=== PATIENT | male | born 1960 | race Caucasian/White ===

== ENCOUNTER → 2017-05-20 | Outpatient (CLI) | payer OTHER ==
--- NOTE | 2017-05-21 15:39 | CT ---
EXAM DESCRIPTION: Soft Tissue Neck w/Contrast: Computed Tomography. 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 TECHNIQUE: Spiral, axial 2.5 mm scans through the neck soft tissues after infusion of IV contrast. Sagittal and coronal 2.0 reconstructions. No adverse reactions. Total Exam DLP: 343.61 mGy-cm. This exam was performed according to our departmental CT dose-optimization program which includes automated exposure control, adjustment of the mA and/or kV according to patient size and/or use of iterative reconstruction technique; to reduce radiation dose to as low as reasonably achievable (ALARA). FINDINGS: Mass with inhomogeneous enhancement in the left sublingual region abutting the anterior cortex of the anterior left mandibular body with mass effect on the abutting soft tissues and tongue. Dimensions are 2.2 cm AP, 1.1 cm transverse, and 2.0 cm craniocaudal. Also mass effect on the left lateral genioglossus/geniohyoid muscle complex, and the superior left anterior digastric muscle. Question involvement of superior aspect of anterior left mylohyoid muscle. No cortical thinning or erosion of the mandible. Normal size density and enhancement of the bilateral parotid glands. Normal size density and enhancement of the bilateral submandibular glands. Uniform enhancement of the thyroid gland. No juxta-thyroid masses. No enlarged lymph nodes in the carotid spaces or paracervical spaces. No enlarged lymph nodes in the parapharyngeal spaces. No abnormal density or enhancement in the included subcutaneous adipose tissue. The included paranasal sinuses show no significant masses or air-fluid levels. Mastoid sinuses bilaterally are well aerated. Normal enhancement in the included cerebellum and brainstem. No mass effect or effacement of the nasopharynx. Posterior septum deviated to the left with septal spur. Included upper lungs show minimal pleural thickening but no infiltrate or mass. Minimal arthrosis atlantoaxial joint, also minimal spondylosis C3-4 and C4-5. Moderate spondylosis C5-6 and C6-7. Bilateral spurs causing neuroforaminal stenosis at C5-6. IMPRESSION: 1. 2.2 cm inhomogeneously enhancing mass in the left sublingual space abutting the anterior left mandibular body with mass effect on the left genioglossus/geniohyoid muscle complex, left anterior digastric muscle, and the anterior left mylohyoid muscle. Questionable involvement of the mylohyoid muscle. No cortical erosion/destruction of the medial mandible. 2. No adenopathy or evidence of continuous spread or mass. 3. Spondylosis at multiple levels of the cervical spine. Electronically signed by: Kishor Gilman MD 05/21/2017 3:39 PM [employer]
== END ==
LOC: CT 08:55
PROVIDERS: ATTEND Otolaryngology
DX: C00-D49 Neoplasms (principal)

== ENCOUNTER → 2017-06-29 | Outpatient (CLI) | payer OTHER ==
--- NOTE | 2017-06-30 08:19 | CT ---
EXAM DESCRIPTION: Chest w/Contrast : Computed Tomography. CLINICAL HISTORY: MALIGNANT NEOPLASM OF SUBLINGUAL GLAND COMPARISON: CT scan of the neck with IV contrast 05/20/2017. TECHNIQUE: Spiral-axial scans at 5.0 mm intervals through the lungs and thorax without IV contrast. 2.5 mm lung algorithm axial reconstructions. Coronal and sagittal 2.0 Mm reconstructions. No adverse reactions. Total Exam DLP: 514.69 mGy-cm. This exam was performed according to our departmental dose-optimization program which includes automated exposure control, adjustment of the mA and/or kV according to patient size and/or use of iterative reconstruction technique; to reduce radiation dose to as low as reasonably achievable (ALARA). FINDINGS: Subpleural flat soft tissue density superior segment left lower lobe (series 4, image 61). Bilateral apical pleural thickening. Scarring medial right lower lobe posterior to the hilum. No abnormal nodules bilaterally and no infiltrates. No pleural effusion or pneumothorax. Small lymph nodes in the mediastinum and hilum but no adenopathy. Also small lymph nodes in the axillary regions. Inhomogeneous enhancement of the thyroid gland. Some diaphragmatic peritoneal space with no free fluid. Less than 1 cm radiodense gallstone. Normal size and enhancement of the adrenal glands and spleen. Fatty infiltration of the pancreas. Spondylosis at some levels of the thoracic spine no bone destruction. IMPRESSION: Scattered parenchymal densities in the lungs but no masses or nodules. No adenopathy in the mediastinum hilum or other included lymph node spaces. Electronically signed by: Kishor Gilman MD 06/30/2017 8:16 AM CDT
== END ==
LOC: CT 08:35
PROVIDERS: ATTEND Otolaryngology
DX: C08.1 Malignant neoplasm of sublingual gland (principal)

== ENCOUNTER → 2019-01-30 | Outpatient (CLI) | payer BC ==
--- NOTE | 2019-01-30 15:50 | CT ---
EXAM DESCRIPTION: Maxillofacial CLINICAL HISTORY: OSTEONECROSIS. 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 COMPARISON: CT soft tissue neck 05/20/2017 TECHNIQUE: Noncontrast CT of the maxillofacial structures were obtained with coronal reconstructions. FINDINGS: BONES: Intramedullary lucency with bony destruction of the left mandible (involving the symphysis, left parasymphyseal region and most extensively involving the left mandibular body) consistent with osteonecrosis. Mild periapical lucency noted about the right medial and lateral incisor, left medial and lateral incisor and more periapical bony destruction involving the left mandibular canine. Mild periapical lucency surrounds the left impacted mandibular molar. No evidence of pathologic fracture. No osteonecrosis of the left maxilla. SOFT TISSUES: Previously enhancing left sublingual mass is no longer visualized. No macroscopic evidence of residual or recurrent tumor. Mild nodular enhancement along the right sublingual space measuring up to 0.8 cm (series 2 image 18) appears unchanged. A nonspecific focus of nodular enhancement measuring 0.7 cm there is present along the outer margins of the right mandibular body (coronal image 32) and was not included in the [id number] from prior comparison study in 2018. No suspicious lymphadenopathy. SINUSES: Mild mucoperiosteal thickening within the floor of the left maxillary sinus. Small left mastoid effusion is partially visualized. IMPRESSION: 1. 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 2. No macroscopic evidence of left sublingual residual or recurrent mass. 3. Nonspecific small nodular soft tissue enhancement along the right mandible, some of which are previously imaged and unchanged. This exam was performed according to our departmental dose-optimization program, which includes automated exposure control, adjustment of the mA and/or kV according to patient size and/or use of iterative reconstruction technique. Is Electronically signed by: Andrea Crane DO 01/30/2019 3:48 PM CDT
== END ==
LOC: CT 10:00
PROVIDERS: ATTEND Otolaryngology
DX: M87.88 Other osteonecrosis, other site (principal)